=== PATIENT | female | born 1985 | race Caucasian/White ===

== ENCOUNTER 2018-06-28 10:58 | Inpatient (IN) | payer MEDICAID ==
[2018-06-28] MEDS: LACTATED RINGER'S 1,000 ML IV ×3 (11:00→22:02)
[2018-06-28] MEDS ORDERED: OXYTOCIN 30 UNITS/LR 500 ML IV ×2 (11:30→17:30)
[2018-06-28] MEDS ORDERED: CEFAZOLIN 2 GM/50 ML (PMX) 50 ML IVPB (11:30)
[2018-06-28] MEDS ORDERED: METHYLERGONOVINE 0.2 MG INJ IM ×2 (11:30→17:30)
[2018-06-28] MEDS ORDERED: CARBOPROST 250 MCG INJ IM ×2 (11:30→17:30)
[2018-06-28] MEDS ORDERED: MISOPROSTOL 200 MCG TAB PR ×2 (11:30→17:30)
[2018-06-28 11:47] LABS: ADD MAN DIFF? NO
[2018-06-28 11:49] LABS: WHITE BLOOD COUNT 11.9 10^3/ul (4.8-10.8)
[2018-06-28 11:49] LABS: BASOPHILS % 0.3 % (0.0-2.0); EOSINOPHILS % 0.2 % (0.0-7.0); HEMATOCRIT 31.9 % (37.0-47.0); HEMOGLOBIN 10.8 g/dl (12.0-16.0); LYMPHOCYTES # 2.3 10^3/ul (0.8-2.9); LYMPHOCYTES % 19.4 % (15.0-51.0); MEAN CORPUSCULAR HEMOGLOBIN 31.2 pg (29.0-33.0); MEAN CORPUSCULAR HGB CONC 33.9 g/dl (32.0-37.0); MEAN CORPUSCULAR VOLUME 92.2 fl (82.0-101.0); MEAN PLATELET VOLUME 11.8 fl (7.4-10.4); MONOCYTE # 0.7 10^3/ul (0.3-0.9); MONOCYTES % 6.1 % (0.0-11.0); NEUTROPHIL # 8.7 10^3/ul (1.6-7.5); PLATELET COUNT 189 10^3/UL (140-415); RED BLOOD COUNT 3.46 10^6/ul (4.20-5.40); RED CELL DISTRIBUTION WIDTH 13.5 % (11.5-14.5)
[2018-06-28 12:08] LABS: INR 0.85; PROTIME 11.7 Sec (11.9-14.9); PT RATIO 0.9
[2018-06-28 12:09] LABS: PARTIAL THROMBOPLASTIN TIME 24.8 Sec (23.0-35.0)
[2018-06-28 13:08] LABS: HEPATITIS B SURFACE ANTIGEN NEGATIVE (NEGATIVE)
[2018-06-28] MEDS ORDERED: morphine SULFATE/PF (10 MG/10 ML) INJ (13:15)
[2018-06-28] MEDS ORDERED: DEXAMETHASONE 4 MG/ML 1 ML INJ (13:16)
[2018-06-28] MEDS ORDERED: ONDANSETRON 4 MG INJ (13:17)
[2018-06-28] MEDS ORDERED: NALOXONE (0.4 MG/ML) INJ IV (14:00)
[2018-06-28] MEDS ORDERED: DIPHENHYDRAMINE 50 MG INJ IV (14:00)
[2018-06-28] MEDS ORDERED: ZOLPIDEM 5 MG TAB PO (14:00)
[2018-06-28] MEDS ORDERED: HYDROmorphONE 0.5 MG/0.5 ML SYG IV ×2 (14:00)
[2018-06-28] MEDS: AZITHROMYCIN 500MG/NS (PMX) 250 ML IVPB (14:42)
[2018-06-28] MEDS: ONDANSETRON 4 MG INJ IV (15:05)
[2018-06-28 15:20] LABS: RAPID PLASMA REAGIN NONREACTIVE (NR)
[2018-06-28] MEDS: OXYTOCIN 30 UNITS/LR 500 ML IV (15:46)
[2018-06-28] MEDS: KETOROLAC 30 MG INJ IV (16:24)
[2018-06-28] MEDS ORDERED: NA PHOSPHATE/BIPHOS 133 ML ENEMA PR (17:30)
[2018-06-28] MEDS: CEFAZOLIN 2 GM/50 ML (PMX) 50 ML IVPB (17:39)
[2018-06-28] MEDS: CLINDAMYCIN 300 MG CAP PO ×2 (18:00→23:36)
[2018-06-28] MEDS: SENNA/DOCUSATE NA (8.6MG/50MG) TAB PO (21:32)
[2018-06-28] MEDS: LANOLIN HPA 1 PKT TOP (21:32)
[2018-06-29] MEDS: CEFAZOLIN 2 GM/50 ML (PMX) 50 ML IVPB ×2 (02:20→10:00)
[2018-06-29] MEDS: CLINDAMYCIN 300 MG CAP PO ×3 (05:27→17:35)
[2018-06-29] MEDS: LACTATED RINGER'S 1,000 ML IV ×2 (06:03→13:30)
[2018-06-29] MEDS: SENNA/DOCUSATE NA (8.6MG/50MG) TAB PO ×2 (07:56→20:39)
[2018-06-29] MEDS: KETOROLAC 30 MG INJ IV (07:56)
[2018-06-29 10:31] LABS: ADD MAN DIFF? NO
[2018-06-29 10:34] LABS: WHITE BLOOD COUNT 17.7 10^3/ul (4.8-10.8)
[2018-06-29 10:34] LABS: BASOPHILS % 0.2 % (0.0-2.0); EOSINOPHILS % 0.1 % (0.0-7.0); HEMATOCRIT 28.6 % (37.0-47.0); HEMOGLOBIN 9.5 g/dl (12.0-16.0); LYMPHOCYTES # 2.4 10^3/ul (0.8-2.9); LYMPHOCYTES % 13.3 % (15.0-51.0); MEAN CORPUSCULAR HEMOGLOBIN 31.6 pg (29.0-33.0); MEAN CORPUSCULAR HGB CONC 33.2 g/dl (32.0-37.0); MEAN PLATELET VOLUME 11.9 fl (7.4-10.4); MONOCYTE # 1.3 10^3/ul (0.3-0.9); MONOCYTES % 7.1 % (0.0-11.0); NEUTROPHIL # 13.8 10^3/ul (1.6-7.5); NEUTROPHILS % 78.3 % (39.0-77.0); PLATELET COUNT 160 10^3/UL (140-415); RED BLOOD COUNT 3.01 10^6/ul (4.20-5.40); RED CELL DISTRIBUTION WIDTH 13.6 % (11.5-14.5)
[2018-06-29] MEDS: BISACODYL 10 MG SUPP PR (11:48)
[2018-06-29] MEDS: IBUPROFEN 800 MG TAB PO ×2 (13:21→20:39)
[2018-06-29] MEDS: OXYCODONE/ACETAMINOPHEN (5/325) TAB PO (15:24)
[2018-06-29] MEDS: CIPROFLOXACIN 500 MG TAB PO (17:35)
[2018-06-30] MEDS: CLINDAMYCIN 300 MG CAP PO ×4 (00:31→17:32)
[2018-06-30] MEDS: HYDROCODONE/APAP (5/325) TAB PO (00:35)
[2018-06-30] MEDS: CIPROFLOXACIN 500 MG TAB PO ×2 (05:31→17:32)
[2018-06-30] MEDS: IBUPROFEN 800 MG TAB PO ×3 (05:32→17:32)
[2018-06-30 09:06] LABS: ADD MAN DIFF? NO
[2018-06-30 09:09] LABS: WHITE BLOOD COUNT 13.4 10^3/ul (4.8-10.8)
[2018-06-30 09:09] LABS: BASOPHILS % 0.1 % (0.0-2.0); EOSINOPHILS % 0.1 % (0.0-7.0); HEMATOCRIT 27.4 % (37.0-47.0); HEMOGLOBIN 8.9 g/dl (12.0-16.0); LYMPHOCYTES # 1.9 10^3/ul (0.8-2.9); LYMPHOCYTES % 13.8 % (15.0-51.0); MEAN CORPUSCULAR HEMOGLOBIN 31.1 pg (29.0-33.0); MEAN CORPUSCULAR HGB CONC 32.5 g/dl (32.0-37.0); MEAN CORPUSCULAR VOLUME 95.8 fl (82.0-101.0); MEAN PLATELET VOLUME 11.1 fl (7.4-10.4); MONOCYTE # 0.7 10^3/ul (0.3-0.9); MONOCYTES % 5.4 % (0.0-11.0); NEUTROPHIL # 10.7 10^3/ul (1.6-7.5); NEUTROPHILS % 79.7 % (39.0-77.0); PLATELET COUNT 171 10^3/UL (140-415); RED BLOOD COUNT 2.86 10^6/ul (4.20-5.40); RED CELL DISTRIBUTION WIDTH 13.8 % (11.5-14.5)
[2018-06-30] MEDS: SENNA/DOCUSATE NA (8.6MG/50MG) TAB PO ×2 (09:10→21:34)
[2018-06-30] MEDS: OXYCODONE/ACETAMINOPHEN (5/325) TAB PO ×2 (09:14→15:02)
[2018-06-30] MEDS ORDERED: ACETAMINOPHEN 325 MG TAB PO (16:30)
[2018-07-01] MEDS: CLINDAMYCIN 300 MG CAP PO ×2 (00:29→07:43)
[2018-07-01] MEDS: OXYCODONE/ACETAMINOPHEN (5/325) TAB PO ×3 (00:30→08:57)
[2018-07-01] MEDS: IBUPROFEN 800 MG TAB PO (07:43)
[2018-07-01] MEDS: CIPROFLOXACIN 500 MG TAB PO (07:44)
[2018-07-01] MEDS: MEASLES,MUMPS,RUBELLA VACCINE INJ SC* (08:36)
[2018-07-01] MEDS: DIPHTH/TET/ACEL PERTUSS (ADULT) 0.5 ML VIAL IM* (08:36)
[2018-07-01 08:47] LABS: WHITE BLOOD COUNT 11.7 10^3/ul (4.8-10.8)
[2018-07-01 08:47] LABS: ADD MAN DIFF? NO; BASOPHILS % 0.3 % (0.0-2.0); EOSINOPHILS # 0.1 10^3/ul (0.0-0.5); EOSINOPHILS % 0.7 % (0.0-7.0); HEMOGLOBIN 9.1 g/dl (12.0-16.0); LYMPHOCYTES # 2.4 10^3/ul (0.8-2.9); LYMPHOCYTES % 20.8 % (15.0-51.0); MEAN CORPUSCULAR HEMOGLOBIN 31.4 pg (29.0-33.0); MEAN CORPUSCULAR HGB CONC 32.5 g/dl (32.0-37.0); MEAN CORPUSCULAR VOLUME 96.6 fl (82.0-101.0); MEAN PLATELET VOLUME 10.8 fl (7.4-10.4); MONOCYTE # 0.7 10^3/ul (0.3-0.9); MONOCYTES % 5.6 % (0.0-11.0); NEUTROPHIL # 8.4 10^3/ul (1.6-7.5); NEUTROPHILS % 71.5 % (39.0-77.0); PLATELET COUNT 185 10^3/UL (140-415); RED CELL DISTRIBUTION WIDTH 13.8 % (11.5-14.5)
[2018-07-01] MEDS: SENNA/DOCUSATE NA (8.6MG/50MG) TAB PO (09:00)
== END 2018-07-01 13:00 | disposition home or self-care (01) | DRG 785 ==
LOC: L-D 10:58 → PP1 16:40
PROVIDERS: Obstetrics & Gynecology
PROC: 10D00Z1 Extraction of Products of Conception, Low, Open Approach (ICD-10-PCS; principal; 2018-06-28 12:30)
PROC: 0UB70ZZ Excision of Bilateral Fallopian Tubes, Open Approach (ICD-10-PCS; 2018-06-28 12:30)
DX: O34.219 Maternal care for unspecified type scar from previous cesarean delivery (principal); Z3A.39 39 weeks gestation of pregnancy; Z37.0 Single live birth; Z30.2 Encounter for sterilization
CPT/HCPCS: 85025; 85610; 85730; 86592; 86850; 86900; 86901; 87340; 88302; 99464